=== PATIENT | male | born 1965 | race American Indian/Alaskan Native ===

== ENCOUNTER 2019-01-15 16:33 | Emergency (ER) | payer BC ==
[2019-01-15] MEDS ORDERED: Lidocaine 1% Inj (20ml) INFIL ONE (18:40)
[2019-01-15] MEDS ORDERED: Lidocaine 2% MPF (5 ml) Inj ONE (19:01)
[2019-01-15] MEDS ORDERED: Lidocaine Hydrochloride 10 ML INJ ONE (19:02)
[2019-01-15 19:18] VITALS: BP 173/85; PULSE 64; RESP 20; TEMP 98.5; O2SAT 100
--- NOTE | 2019-01-15 19:35 | C.PDOC ---
History Of Present Illness 53 y/o male presents to the ED for evaluation of pain and swelling to right thumb for three days. Patient admits to nail biting. He denies fever, chills, or known trauma/injury to the area. Time Seen by Provider: 01/15/19 18:37 Chief Complaint (Nursing): Finger,Hand,&Wrist History Per: Patient History/Exam Limitations: no limitations Onset/Duration Of Symptoms: Days (3) Current Symptoms Are (Timing): Still Present Quality: "Pain" Additional History Per: Patient Past Medical History Reviewed: Historical Data, Nursing Documentation, Vital Signs Vital Signs: Last Vital Signs Temp 98.5 F 01/15/19 18:22 Pulse 64 01/15/19 18:22 Resp 20 01/15/19 18:22 BP 173/85 H 01/15/19 18:22 Pulse Ox 100 01/15/19 18:22 - Medical History PMH: HTN Surgical History: No Surg Hx Family History: States: Unknown Family Hx - Social History Hx Alcohol Use: Yes Hx Substance Use: No Review Of Systems Constitutional: Negative for: Fever, Chills Skin: Positive for: Other (pain and swelling to right thumb, atraumatic ) Physical Exam - Physical Exam Appears: Non-toxic, No Acute Distress Skin: Normal Color, Warm, Dry Extremity: Normal ROM, Capillary Refill (less than 2 seconds ), Other (swelling around right 1st nailbed with pustule ) Pulses: Left Radial: Normal, Right Radial: Normal Neurological/Psych: Normal Speech, Normal Cognition, Normal Sensation ED Course And Treatment O2 Sat by Pulse Oximetry: 100 (on RA) Pulse Ox Interpretation: Normal - Incision & Drainage Of Abscess Anesthesia: Lidocaine 1% Procedure: Incised W/Scalpel Blade#: (11), Drained Pus Disposition Counseled Patient/Family Regarding: Diagnosis, Need For Followup - Disposition Referrals: James Lanier DO [Staff Provider] - Disposition: HOME/ ROUTINE Disposition Time: 19:35 Condition: IMPROVED Additional Instructions: Soak finger in warm water several times a day. FOllow up Dr Lanier. Tylenol or MOtrin for pain if needed. Instructions: Paronychia (DC) Forms: General Discharge Instructions, [facility] (Ecuadorean) - Clinical Impression Clinical Impression: Paronychia of right thumb - PA / COMPUTER APPLICATIONS DEVELOPER / Resident Statement / has reviewed & agrees with the documentation as recorded. - Scribe Statement The provider has reviewed the documentation as recorded by the Scribe (Nette Dorantes) All medical record entries made by the Scribe were at my direction and personally dictated by me. I have reviewed the chart and agree that the record accurately reflects my personal performance of the history, physical exam, medical decision making, and the department course for this patient. I have also personally directed, reviewed, and agree with the discharge instructions and disposition.
== END 2019-01-15 19:45 | disposition home or self-care (01) ==
LOC: C.ER 16:33
DX: L03.011 Cellulitis of right finger (principal); I10 Essential (primary) hypertension